=== PATIENT | male | born 2000 | race Caucasian/White ===

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

== ENCOUNTER 2022-05-23 19:26 | Emergency (ER) | payer OTHER, BC ==
--- NOTE | 2022-05-23 19:54 | ED Physician Documentation ---
History of Present Illness - Stated complaint Stated Complaint: NECK/BACK PX/ FALL - Chief complaint Chief Complaint: General - History obtained from History obtained from: Patient - Additonal information Additional information: 2 nights ago he was using floor stripper at work and slipped and fell backwards. He hit the back of his head and neck and back on it. He had a headache earlier but it is gone now. Basically now is complaining of neck and upper back pain. PD PAST MEDICAL HISTORY - Past Medical History Cardiovascular: None Respiratory: None Neuro: None Endocrine/Autoimmune: None GI: None : None HEENT: None Psych: None Musculoskeletal: None Derm: None - Past Surgical History Past Surgical History: Yes - Present Medications Home Medications: Ambulatory Orders Medication Instructions Recorded Confirmed Sulfamethox/Trimeth 800/160 1 each PO BID #14 tablet 06/04/20 [Bactrim Ds] cephALEXin [Keflex] 500 mg PO Q6H 06/04/20 06/04/20 - Allergies Allergies/Adverse Reactions: Allergies Allergy/AdvReac Type Severity Reaction Status Date / Time acetaminophen [From Vicodin] Allergy Cramps Verified 05/23/22 19:39 hydrocodone bitartrate * Allergy Cramps Verified 05/23/22 19:39 [From Vicodin] amoxicillin AdvReac Nausea Verified 05/23/22 19:39 oxycodone AdvReac Nausea Verified 05/23/22 19:39 - Social History Does the pt smoke?: No Smoking Status: Never smoker Does the pt drink ETOH?: No Does the pt have substance abuse?: No - Immunizations Immunizations are current?: Yes Immunizations: TDAP >10years/unknown - POLST Patient has POLST: No PD ED PE NORMAL - Vitals Vital signs reviewed: Yes - General General: Alert and oriented X 3, No acute distress - HEENT HEENT: PERRL, EOMI - Neck Neck: Other (Mild tenderness of the cervical and mid thoracic spines without limited range of motion.) - Cardiac Cardiac: RRR, No murmur - Respiratory Respiratory: No respiratory distress, Clear bilaterally - Extremities Extremities: Other (The patient has equal and normal Achilles and patellar reflexes bilaterally. Normal sensation in all areas of the legs. Patient denies saddle anesthesia. Normal strength in flexion-extension at the ankles, knees, and flexion of the hips.) - Neuro Neuro: Alert and oriented X 3, No motor deficit, No sensory deficit, Normal speech Eye Opening: Spontaneous Motor: Obeys Commands Verbal: Oriented GCS Score: 15 Results - Vitals Vitals: Vital Signs - 24 hr 05/23/22 19:30 Temperature 36.8 C Heart Rate 61 Respiratory 18 Rate Blood Pressure 142/69 H O2 Saturation 100 Oxygen O2 Source Room air - Rads (name of study) CT of the cervical and thoracic spines are without evidence of traumatic abnormality. Relevant Findings:: Final report received, EMP independent interpretation of test PD Medical Decision Making - ED course ED course: 22-year-old gentleman with a fall, ground-level with neck and back pain and negative imaging. [id number] completed Departure - Departure Disposition: 01 Home, Self Care Clinical Impression: Ground-level fall Neck strain Qualifiers: Encounter type: initial encounter Qualified Code(s): S16.1XXA - Strain of muscle, fascia and tendon at neck level, initial encounter Back contusion Qualifiers: Encounter type: initial encounter Laterality: unspecified laterality Qualified Code(s): S20.229A - Contusion of unspecified back wall of thorax, initial encounter Condition: Good Record reviewed to determine appropriate education?: Yes Instructions: ED Sprain Strain Neck Comments: Tylenol and/or ibuprofen as needed for aches and pains, return if worse. Follow-up with your doctor in a week if not improved. Forms: Activity restrictions
--- NOTE | 2022-05-23 20:56 | CT Report ---
PROCEDURE: CERVICAL SPINE WO INDICATIONS: back/neck pain TECHNIQUE: Noncontrast 3 mm thick sections acquired from the skull base to the T4 level. Sagittal and coronal r eformats were then constructed. For radiation dose reduction, the following was used: automated exp osure control, adjustment of mA and/or kV according to patient size. COMPARISON: None. FINDINGS: Image quality: Excellent. Bones: No fractures or dislocations. Visualized superior ribs are intact. Soft tissues: Prevertebral soft tissues are normal in thickness. No paravertebral hematomas. No ap ical pneumothoraces. IMPRESSION: Normal for age, source of neck pain is not identified. Reviewed by: Gary Woods MD on 05/23/2022 8:55 PM PDT Approved by: Gary Woods MD on 05/23/2022 8:55 PM PDT Station ID: [id number]
--- NOTE | 2022-05-23 20:58 | CT Report ---
PROCEDURE: THORACIC SPINE WO INDICATIONS: back/neck pain TECHNIQUE: Noncontrast 3 mm thick sections acquired through the region of interest in the thoracic spine. Sagit pamela and coronal reformats were then constructed. For radiation dose reduction, the following was used : automated exposure control, adjustment of mA and/or kV according to patient size. COMPARISON: None. FINDINGS: Image quality: Excellent. Bones: There is normal overall bony alignment. No acute vertebral body compression fractures. No s uspicious sclerotic or lytic bony lesions. Central spinal canal is of normal overall caliber. Soft tissues: No paravertebral masses or hematomas. Visualized posteromedial lungs appear clear. 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 Reviewed by: Gary Woods MD on 05/23/2022 8:57 PM PDT Approved by: Gary Woods MD on 05/23/2022 8:57 PM PDT Station ID: [id number]
[2022-05-23 21:11] VITALS: BP 130/75
== END 2022-05-23 21:10 | disposition home or self-care (01) ==
LOC: ED 19:26
DX: S16.1XXA Strain of muscle, fascia and tendon at neck level, initial encounter (principal); S20.229A Contusion of unspecified back wall of thorax, initial encounter; W01.0XXA Fall on same level from slipping, tripping and stumbling without subsequent striking against object, initial encounter; Y93.89 Activity, other specified; Y99.0 Civilian activity done for income or pay
CPT/HCPCS: 1040M; 72125; 72128; 99283; 99284

== ENCOUNTER 2023-03-22 02:57 | Emergency (ER) | payer BC, OTHER ==
[2023-03-22 03:26] VITALS: O2SAT 100
[2023-03-22] MEDS: ONDANSETRON ODT 4 MG TABLET TL STA (03:54)
--- NOTE | 2023-03-22 03:54 | ED Physician Documentation ---
History of Present Illness - Stated complaint Stated Complaint: DIZZY/NO APPETITE - Chief complaint Chief Complaint: Neuro - History obtained from History obtained from: Patient - Additonal information Additional information: Patient comes to the emergency department chief complaint of decreased appetite and mild nausea for the last 2 and half days. He states that he has not vomited and he has not had any diarrhea. No abdominal pain. No fevers or chills. No urinary symptoms. The patient states that he just usually does not feel this way about eating and he wants to make sure "everything is okay". The patient does admit to being under some stress and wondering if this is the reason he feels nauseated. He denies any sick contacts. He was able to hold down some water today but states he had an aversion to drinking it. PD PAST MEDICAL HISTORY - Past Medical History Past Medical History: No Cardiovascular: None Respiratory: None Neuro: None Endocrine/Autoimmune: None GI: None : None HEENT: None Psych: None Musculoskeletal: None Derm: None - Past Surgical History Past Surgical History: Yes - Present Medications Home Medications: Ambulatory Orders Medication Instructions Recorded Confirmed Ondansetron Odt [Zofran] 4 mg TL Q6H PRN #14 tablet 03/22/23 - Allergies Allergies/Adverse Reactions: Allergies Allergy/AdvReac Type Severity Reaction Status Date / Time acetaminophen [From Vicodin] Allergy Cramps Verified 03/22/23 03:16 hydrocodone bitartrate * Allergy Cramps Verified 03/22/23 03:16 [From Vicodin] amoxicillin AdvReac Nausea Verified 03/22/23 03:16 oxycodone AdvReac Nausea Verified 03/22/23 03:16 - Social History Does the pt smoke?: No Smoking Status: Never smoker Does the pt drink ETOH?: Yes ETOH Use: Wine, Beer Does the pt have substance abuse?: No - Immunizations Immunizations are current?: Yes Immunizations: TDAP >10years/unknown - POLST Patient has POLST: No PD ED PE NORMAL - Vitals Vital signs reviewed: Yes - General General: Alert and oriented X 3, No acute distress, Well developed/nourished - HEENT HEENT: Atraumatic, PERRL, EOMI, Moist mucous membranes - Neck Neck: Supple, no meningeal sign - Cardiac Cardiac: RRR, No murmur - Respiratory Respiratory: No respiratory distress, Clear bilaterally - Abdomen Abdomen: Soft, Non tender, Non distended - Derm Derm: Normal color, Warm and dry, No rash - Extremities Extremities: No deformity, No edema - Neuro Neuro: Alert and oriented X 3, Other (Grossly intact) - Psych Psych: Normal mood, Normal affect Results - Vitals Vitals: Vital Signs - 24 hr 03/22/23 03:00 Temperature 36.7 C Heart Rate 64 Respiratory 16 Rate Blood Pressure 148/97 H O2 Saturation 100 Oxygen O2 Source Room air PD Medical Decision Making - ED course Complexity details: considered differential, d/w patient ED course: I discussed with the patient that his nausea could be due to stress or to one of the viral illnesses that are going around commonly right now and causing this nausea. Either way, expect the symptoms to be self-limited. I have given the patient a dose of Zofran here and a prescription for the same. Discussed the need for follow-up if the patient has further concerns. I have given him our PCP list and the info for the clinic that is on-call for ED follow-up this week. Departure - Departure Disposition: 01 Home, Self Care Clinical Impression: Decreased appetite, Nausea Condition: Stable Instructions: ED Nausea Vomiting Prescriptions: Ondansetron Odt [Zofran] 4 mg TL Q6H PRN #14 tablet PRN Reason: Nausea / Vomiting Comments: The appetite changes/nausea you have been experiencing over the last few days may be due to one of the viruses going around and causing stomach symptoms, or could be due to stress. Either way, the symptoms should ultimately resolve on their own. A prescription for nausea medicine has been electronically transmitted to the [facility] pharmacy in [place]. You may pick this up in the morning and take it as needed. The clinic on-call for this week for primary care follow-up is the [facility] in [place]. The contact information for the clinic has been included and you should give them a call first thing today when you wake up to set up a follow-up appointment. The number for the clinic is [phone]. As we discussed, for now, you should just take clear liquids for the next 24 hours. If you are feeling a little better and you want to try eating, please start with simple starches such as Top Ramen and saltine crackers. You may gradually advance your diet as tolerated.
[2023-03-22 04:26] VITALS: BP 129/67
== END 2023-03-22 04:16 | disposition home or self-care (01) ==
LOC: ED 02:57
DX: R11.0 Nausea (principal); R63.0 Anorexia
CPT/HCPCS: 99282; 99283; Q0162

== ENCOUNTER 2023-06-03 12:50 | Outpatient (CLI) | payer BC | END 2023-06-03 12:51 | disposition home or self-care (01) | LOC: NS 12:50 | PROVIDERS: ATTEND Nurse Practitioner Family | DX: Z71.3 Dietary counseling and surveillance (principal); E66.9 Obesity, unspecified; G47.00 Insomnia, unspecified; F41.8 Other specified anxiety disorders; Z68.35 Body mass index [BMI] 35.0-35.9, adult | CPT/HCPCS: 97802 ==

== ENCOUNTER 2023-06-29 12:54 | Outpatient (CLI) | payer BC | END 2023-06-29 12:55 | disposition home or self-care (01) | LOC: NS 12:54 | PROVIDERS: ATTEND Nurse Practitioner Family | DX: Z71.3 Dietary counseling and surveillance (principal); G47.00 Insomnia, unspecified; F41.8 Other specified anxiety disorders; E66.9 Obesity, unspecified; Z68.38 Body mass index [BMI] 38.0-38.9, adult | CPT/HCPCS: 97803 ==

== ENCOUNTER 2023-07-26 12:56 | Outpatient (CLI) | payer BC | END 2023-07-26 12:57 | disposition home or self-care (01) | LOC: MAC.INF 12:56 → NS 12:57 | PROVIDERS: ATTEND Nurse Practitioner Family | DX: Z71.3 Dietary counseling and surveillance (principal); E66.9 Obesity, unspecified; Z68.38 Body mass index [BMI] 38.0-38.9, adult; G47.00 Insomnia, unspecified; F41.8 Other specified anxiety disorders | CPT/HCPCS: 97803 ==